=== PATIENT | female | born 2000 | race Caucasian/White ===

== ENCOUNTER 2022-05-01 16:22 | Inpatient (IN) | payer MEDICAID ==
[~2022-05-01] VITALS: Ht 167.6 cm; Wt 83.9 kg
[2022-05-01] MEDS ORDERED: LORAZEPAM 2 MG/1 ML VIAL ONE ×3 (16:38→20:27)
[2022-05-01] MEDS ORDERED: IV NORMAL SALINE 1000 ML BAG IV ONE (16:45)
[2022-05-01] MEDS ORDERED: LORAZEPAM 2 MG/1 ML VIAL IV ONE ×2 (16:45→18:30)
[2022-05-01] MEDS ORDERED: MAGN400O58 PO (17:12)
[2022-05-01] MEDS ORDERED: PHEN100C4 PO (17:12)
[2022-05-01] MEDS ORDERED: AMOX-430 PO (17:12)
[2022-05-01] MEDS ORDERED: ARIP5TAB10 PO (17:12)
[2022-05-01] MEDS ORDERED: ESCI5TAB PO (17:12)
[2022-05-01] MEDS ORDERED: FAMO20TA8 PO (17:12)
[2022-05-01] MEDS ORDERED: ACET325T53 PO (17:12)
[2022-05-01 18:24] LABS: *BILIRUBIN,URIN NEGATIVE (NEGATIVE); *BLOOD, URINE NEGATIVE (NEGATIVE); *CLARITY,URINE CLEAR (CLEAR); *COLOR,URINE YELLOW (YELLOW); *KETONES,URINE 3+ (NEGATIVE); *UROBILINOGEN,URINE 0.2 E.U./dl (NORMAL); LEUKOCYTE ESTERASE ,URINE 1+ (NEGATIVE); NITRITE, URINE NEGATIVE (NEGATIVE); PH,URINE 7.5 (5.0-8.0); UGLUCOSE NEGATIVE (NEGATIVE)
[2022-05-01] MEDS ORDERED: VALPROATE SODIUM 500 MG/5 ML VIAL IV ONE ×2 (18:30→20:25)
[2022-05-01 18:33] LABS: *AMPHETAMINE, URINE NEGATIVE (NEGATIVE); *CANNABINOID, URINE NEGATIVE (NEGATIVE); *COCCAINE, URINE NEGATIVE (NEGATIVE); *OPIATE, URINE NEGATIVE (NEGATIVE); *PHENCYCLIDINE SCREEN,URINE NEGATIVE (NEGATIVE)
[2022-05-01] MEDS ORDERED: REMEDY ESSENTIAL ZINC PASTE 113 GM TP PRN (19:00)
[2022-05-01] MEDS ORDERED: LORAZEPAM 2 MG/1 ML VIAL IV PRN ×2 (19:00→21:45)
[2022-05-01] MEDS ORDERED: MAGNESIUM HYDROXIDE 30 ML LIQUID UDC PO PRN (19:00)
[2022-05-01] MEDS ORDERED: PHENYTOIN SODIUM IV ONE (19:30)
[2022-05-01] MEDS ORDERED: NORMAL SALINE IV ONE (19:30)
[2022-05-01] MEDS ORDERED: ONDANSETRON ODT 4 MG TAB.RAPDIS SL ONE (19:45)
[2022-05-01] MEDS ORDERED: PHENYTOIN SODIUM 250 MG/5 ML VIAL IV ONE (20:26)
[2022-05-01 21:05] LABS: BACTERIA,URINE FEW /HPF (NONE SEEN); SQUAMOUS EPITHELIAL CELL,UR FEW /HPF (NONE SEEN)
[2022-05-01] MEDS ORDERED: LIDOCAINE HCL 1% 20 ML VIAL ONE (21:35)
[2022-05-01] MEDS ORDERED: LIDOCAINE HCL 1% 20 ML VIAL IJ PRN (23:00)
[2022-05-01 23:38] VITALS: BP 107/65
[2022-05-02] VITALS (11 sets, daily range): BP systolic 91–132; BP diastolic 53–80
[2022-05-02 01:38] LABS: HEMATOCRIT 36.8 % (31.2-41.9); MEAN CORPUSCULAR HEMOGLOBIN 30.5 uug (24.7-32.8); PLATELET COUNT (AUTO) 339 K/uL (179-408)
[2022-05-02 01:48] LABS: MAGNESIUM 1.8 mg/dL (1.8-2.4); PHOSPHOROUS 3.8 mg/dL (2.5-4.9)
[2022-05-02 01:51] LABS: ALANINE AMINOTRANSFERASE 15 U/L (14-59); ALKALINE PHOSPHATASE 73 U/L (50-136); ASPARTATE AMINOTRANSFERASE 13 U/L (15-37); BILIRUBIN,DIRECT < 0.1 mg/dL (0.0-0.2); BILIRUBIN,TOTAL 0.2 mg/dL (0.2-1.0); CARBON DIOXIDE 27 mmol/L (21-32); CHLORIDE 102 mmol/L (98-107); CREATININE 0.7 mg/dL (0.6-1.3); GLUCOSE 97 mg/dL (74-106); PHENYTOIN (DILANTIN) 9.5 ug/mL (10.0-20.0); POTASSIUM 3.5 mmol/L (3.5-5.1); TOTAL PROTEIN, SERUM 7.2 g/dL (6.4-8.2); UREA NITROGEN, BLOOD 3 mg/dL (7-18)
[2022-05-02 01:53] LABS: ETHANOL < 3 MG/DL (0-0)
[2022-05-02] MEDS: IV NS 1000 ML 1,000 ML IV PRN (02:41)
[2022-05-02 02:46] LABS: THYROID STIMULATING HORMONE 2.212 mIU/mL (0.358-3.740)
[2022-05-02] MEDS: ACETAMINOPHEN 325 MG TABLET PO PRN ×2 (03:19→08:58)
[2022-05-02] MEDS ORDERED: PHENYTOIN SODIUM IV 200 MG in IV NORMAL SALINE 50 ML IV SCH (07:30)
[2022-05-02] MEDS: PANTOPRAZOLE SODIUM 40 MG TABLET.DR PO SCH (08:57)
[2022-05-02] MEDS: ONDANSETRON 4 MG/2 ML VIAL IV PRN ×2 (08:57→15:50)
[2022-05-02] MEDS ORDERED: FAMOTIDINE 20 MG TABLET PO SCH ×2 (09:00)
[2022-05-02] MEDS: PHENYTOIN SODIUM EXTENDED 100 MG CAPSULE.SA PO SCH ×2 (09:13→17:00)
[2022-05-02] MEDS: CEphaleXIN 500 MG CAPSULE PO SCH ×2 (09:35→18:00)
[2022-05-02] MEDS ORDERED: QUET150T2 PO (12:18)
[2022-05-02] MEDS ORDERED: QUET100T32 PO (12:19)
[2022-05-02] MEDS ORDERED: LORAZEPAM 2 MG/1 ML VIAL IM ONE (17:45)
[2022-05-02] MEDS ORDERED: diphenhydrAMINE 50 MG/1 ML VIAL IM PRN (17:45)
[2022-05-02] MEDS ORDERED: HALOPERIDOL LACTATE 5 MG/1 ML VIAL IM ONE (17:45)
[2022-05-02] MEDS ORDERED: diphenhydrAMINE 50 MG/1 ML VIAL IM ONE (17:45)
[2022-05-02 19:50] LABS: VALPROIC ACID 4 ug/mL (50-100)
[2022-05-03] VITALS (8 sets, daily range): BP systolic 86–128; BP diastolic 45–73
[2022-05-03] MEDS: IV NS 1000 ML 1,000 ML IV PRN (04:27)
[2022-05-03] MEDS: HALOPERIDOL 5 MG TABLET PO SCH ×3 (08:27→16:42)
[2022-05-03] MEDS: PANTOPRAZOLE SODIUM 40 MG TABLET.DR PO SCH (08:27)
[2022-05-03] MEDS: DIVALPROEX 250 MG TABLET.DR PO SCH ×3 (08:28→16:42)
[2022-05-03] MEDS: BENZTROPINE MESYLATE 1 MG TABLET PO SCH ×3 (08:28→16:41)
[2022-05-03] MEDS: CEphaleXIN 500 MG CAPSULE PO SCH ×2 (08:29→16:42)
[2022-05-03] MEDS: PHENYTOIN SODIUM EXTENDED 100 MG CAPSULE.SA PO SCH ×3 (08:29→21:15)
[2022-05-03] MEDS ORDERED: PHENYTOIN SODIUM 100 MG/2 ML VIAL IV ONE (11:30)
[2022-05-03] MEDS: diphenhydrAMINE 50 MG/1 ML VIAL IM PRN (20:49)
[2022-05-04] VITALS (8 sets, daily range): BP systolic 90–113; BP diastolic 45–55
[2022-05-04] MEDS: LORAZEPAM 2 MG/1 ML VIAL IM PRN ×2 (04:28→21:13)
[2022-05-04] MEDS: diphenhydrAMINE 50 MG/1 ML VIAL IM PRN ×3 (04:34→20:14)
[2022-05-04] MEDS: PHENYTOIN SODIUM EXTENDED 100 MG CAPSULE.SA PO SCH ×3 (05:28→21:05)
[2022-05-04] MEDS: PANTOPRAZOLE SODIUM 40 MG TABLET.DR PO SCH (06:01)
[2022-05-04] MEDS: HALOPERIDOL LACTATE 5 MG/1 ML VIAL IM PRN (06:03)
[2022-05-04] MEDS: CEphaleXIN 500 MG CAPSULE PO SCH ×2 (08:19→17:05)
[2022-05-04] MEDS: DIVALPROEX 250 MG TABLET.DR PO SCH ×3 (08:19→17:04)
[2022-05-04] MEDS: HALOPERIDOL 5 MG TABLET PO SCH ×3 (08:19→17:05)
[2022-05-04] MEDS: BENZTROPINE MESYLATE 1 MG TABLET PO SCH ×3 (08:20→17:04)
[2022-05-05] VITALS (7 sets, daily range): BP systolic 92–125; BP diastolic 33–68
[2022-05-05] MEDS ORDERED: KETOROLAC TROMETHAMINE 15 MG INJ ONE (00:03)
[2022-05-05] MEDS: KETOROLAC TROMETHAMINE 15 MG INJ IM PRN (00:12)
[2022-05-05] MEDS: PANTOPRAZOLE SODIUM 40 MG TABLET.DR PO SCH (06:13)
[2022-05-05] MEDS: diphenhydrAMINE 50 MG/1 ML VIAL IM PRN ×3 (06:13→20:27)
[2022-05-05] MEDS: PHENYTOIN SODIUM EXTENDED 100 MG CAPSULE.SA PO SCH ×3 (06:13→22:27)
[2022-05-05] MEDS ORDERED: DIVA250T4 PO (07:44)
[2022-05-05] MEDS ORDERED: HALO5TAB12 PO (07:44)
[2022-05-05] MEDS ORDERED: PHEN100C4 PO (07:44)
[2022-05-05] MEDS ORDERED: BENZ1TAB7 PO (07:44)
[2022-05-05] MEDS: HALOPERIDOL 5 MG TABLET PO SCH ×3 (08:54→17:00)
[2022-05-05] MEDS: CEphaleXIN 500 MG CAPSULE PO SCH ×2 (08:54→17:00)
[2022-05-05] MEDS: DIVALPROEX 250 MG TABLET.DR PO SCH ×3 (08:54→17:00)
[2022-05-05] MEDS: BENZTROPINE MESYLATE 1 MG TABLET PO SCH ×3 (08:55→17:00)
[2022-05-05] MEDS: LORAZEPAM 2 MG/1 ML VIAL IM PRN ×2 (09:34→16:11)
[2022-05-05] MEDS: HALOPERIDOL LACTATE 5 MG/1 ML VIAL IM PRN (10:18)
[2022-05-05] MEDS ORDERED: PHENYTOIN SODIUM IV ONE (17:00)
[2022-05-05] MEDS ORDERED: NORMAL SALINE IV ONE (17:00)
[2022-05-05 17:05] LABS: HEMATOCRIT 35.5 % (31.2-41.9); MEAN CORPUSCULAR HEMOGLOBIN 30.1 uug (24.7-32.8); MEAN CORPUSCULAR VOLUME 90.5 fL (75.5-95.3); PLATELET COUNT (AUTO) 200 K/uL (179-408)
[2022-05-05 17:06] LABS: MAGNESIUM 1.9 mg/dL (1.8-2.4); PHENYTOIN (DILANTIN) 10.9 ug/mL (10.0-20.0); POTASSIUM 4.1 mmol/L (3.5-5.1)
[2022-05-05] MEDS: LORAZEPAM 2 MG/1 ML VIAL IV PRN ×2 (18:10→18:51)
[2022-05-05] MEDS ORDERED: DEXTROSE 5% IV ONE (20:00)
[2022-05-05] MEDS ORDERED: VALPROATE SODIUM IV ONE (20:00)
[2022-05-06] VITALS (11 sets, daily range): BP systolic 83–141; BP diastolic 41–62
[2022-05-06] MEDS: ACETAMINOPHEN 325 MG TABLET PO PRN ×2 (00:10→04:29)
[2022-05-06] MEDS: diphenhydrAMINE 50 MG/1 ML VIAL IM PRN (03:48)
[2022-05-06] MEDS: PHENYTOIN SODIUM EXTENDED 100 MG CAPSULE.SA PO SCH ×3 (05:30→21:20)
[2022-05-06] MEDS: PANTOPRAZOLE SODIUM 40 MG TABLET.DR PO SCH (06:01)
[2022-05-06] MEDS: CEphaleXIN 500 MG CAPSULE PO SCH ×2 (08:58→17:03)
[2022-05-06] MEDS: DIVALPROEX 500 MG TABLET.DR PO SCH ×3 (08:58→17:03)
[2022-05-06] MEDS: BENZTROPINE MESYLATE 1 MG TABLET PO SCH ×3 (08:59→17:03)
[2022-05-06] MEDS: HALOPERIDOL 5 MG TABLET PO SCH ×3 (08:59→17:03)
[2022-05-06] MEDS ORDERED: DIVALPROEX 250 MG TABLET.DR PO SCH (09:00)
[2022-05-06] MEDS: LORAZEPAM 2 MG/1 ML VIAL IV PRN ×2 (10:19→21:43)
[2022-05-06] MEDS: ONDANSETRON 4 MG/2 ML VIAL IV PRN (23:42)
[2022-05-06] MEDS: KETOROLAC TROMETHAMINE 15 MG INJ IM PRN (23:45)
[2022-05-07] MEDS: ONDANSETRON 4 MG/2 ML VIAL IV PRN (04:23)
[2022-05-07] MEDS: ACETAMINOPHEN 325 MG TABLET PO PRN ×2 (04:23→06:44)
[2022-05-07 04:32] VITALS: BP 94/49
[2022-05-07] MEDS: PHENYTOIN SODIUM EXTENDED 100 MG CAPSULE.SA PO SCH (06:44)
[2022-05-07] MEDS: PANTOPRAZOLE SODIUM 40 MG TABLET.DR PO SCH (06:44)
[2022-05-07 08:00] VITALS: BP 112/61
[2022-05-07] MEDS: LORAZEPAM 2 MG/1 ML VIAL IV PRN (08:31)
== END 2022-05-07 09:24 | disposition left against medical advice (07) | DRG 53 ==
LOC: ER 16:24 → TELE3 22:40 → CCU 05-02 00:02 → MEDSURG3 05-05 15:30 → CCU 05-05 17:23
PROVIDERS: ADMIT Registered Nurse; ATTEND Nurse Practitioner Acute Care
PROC: B54BZZA Ultrasonography of Right Lower Extremity Veins, Guidance (ICD-10-PCS; principal; 2022-05-02)
PROC: 06HM33Z Insertion of Infusion Device into Right Femoral Vein, Percutaneous Approach (ICD-10-PCS; principal; 2022-05-02)
DX: G40.909 Epilepsy, unspecified, not intractable, without status epilepticus (principal); F25.9 Schizoaffective disorder, unspecified; R45.851 Suicidal ideations; E66.9 Obesity, unspecified; N39.0 Urinary tract infection, site not specified; F32.A Depression, unspecified; F41.9 Anxiety disorder, unspecified; F90.9 Attention-deficit hyperactivity disorder, unspecified type; Z59.00 Homelessness unspecified; Z91.51 Personal history of suicidal behavior; F43.10 Post-traumatic stress disorder, unspecified; Z20.822 Contact with and (suspected) exposure to COVID-19; Z68.29 Body mass index [BMI] 29.0-29.9, adult; B96.89 Other specified bacterial agents as the cause of diseases classified elsewhere
CPT/HCPCS: 36415; 36600; 70450; 71045; 80164; 83735; 84100; 84443; 84484; 85025; 87086; 93005; A4663; G0378; G0480; J1165; J1200; J1630; J1885; J2060; J2405; J3490; J7040; J7060; Q0162